=== PATIENT | male | born 1995 | race Caucasian/White ===

== ENCOUNTER 2021-01-18 17:36 | Emergency (ER) | payer OTHER ==
[~2021-01-18] VITALS: Ht 182.9 cm; Wt 83.9 kg
--- NOTE | 2021-01-19 00:47 | EKG ---
[facility] [address] [facility] [place] [address] Signed Normal sinus rhythm with sinus arrhythmia Normal ECG No previous ECGs available Confirmed by BERNABE LIN MD ([id number] on 01/19/2021 12:47:38 AM Electronically Signed By: BERNABE LIN MD 01/19/21 0047 PATIENT NAME: PDADY SAENZ SHAKA Electrocardiogram DATE OF : [birth year] PHYSICIAN: BERNABE LIN MD REPORT #: [id number] REPORT IS CONFIDENTIAL AND NOT TO BE RELEASED WITHOUT AUTHORIZATION
== END 2021-01-19 15:23 | disposition short-term general hospital (02) ==
LOC: ED 17:36
DX: F20.9 Schizophrenia, unspecified (principal); Z20.822 Contact with and (suspected) exposure to COVID-19
CPT/HCPCS: 80053; 81001; 84443; 85025; 93005; 93010; 99285-25; C9803; G0480; U0003